=== PATIENT | male | born 1965 | race Caucasian/White ===

== ENCOUNTER 2019-04-26 00:34 | Observation (INO) ==
[2019-04-26 01:40] LABS: Bilirubin,Urine Small (Negative); Blood,Urine Negative (Negative); Glucose,Urine (UA) Normal (Normal); Ketones,Urine Trace mg/dL (Negative); Leukocyte Esterase,Urine Trace (Negative); Nitrite,Urine Negative (Negative); Protein,Urine 100 mg/dL (Neg-Trace); Specific Gravity,Urine > 1.030 (1.010-1.025)
[2019-04-26 01:41] LABS: Basophils % 0.4 %; Eosinophils % 0.4 %; Mean Corpuscular Volume 77.5 fL (83.0-100.0)
[2019-04-26 01:42] LABS: Hyaline Casts,Urine None Seen per lpf (None-Few); RBC,Urine 0-3 per hpf (0-3); Squamous Epithelial Cell,Urine Moderate per lpf (None-Few)
[2019-04-26 01:43] LABS: Color,Urine Dark Yellow (Yellow); Hematocrit 40.3 % (37.5-50.1); Hemoglobin 13.1 g/dL (12.9-16.9); Immature Granulocytes % 1.1 % (0-4); Lymphocytes % 31.5 %; Mean Corpuscular HGB Conc 32.5 g/dL (31.6-35.5); Mean Corpuscular Hemoglobin 25.2 pg (28.0-33.3); Monocytes # 0.3 K/mcL (0.0-1.3); Monocytes % 9.4 %; Neutrophils # 1.5 K/mcL (1.6-8.9); Red Cell Distribution Width 15.9 % (11.5-14.5); Segmented Neutrophils % 57.2 %
[2019-04-26 01:44] LABS: Clarity,Urine Slightly Hazy (Clear)
[2019-04-26 01:53] LABS: Bacteria,Urine Few per hpf (None-Few)
[2019-04-26 01:54] LABS: INR 1.2; Mucus,Urine Few (Few); Prothrombin Time 13.9 Seconds (9.4-12.1); Transitional Epi Cells,Urine Few per hpf (None-Few)
[2019-04-26 01:57] LABS: Activated Partial Thrombo Time 33.3 Seconds (26.0-36.0)
[2019-04-26 02:02] LABS: Alanine Aminotransferase 20 Units/L (7-52); Albumin 3.4 g/dL (3.5-5.7); Albumin/Globulin Ratio 1.1 (1.1-2.2); Alkaline Phosphatase 92 Units/L (34-104); Aspartate Amino Transferase 86 Units/L (13-39); BUN/Creatinine Ratio 15 (6-26); Bilirubin,Direct 0.7 mg/dL (0.0-0.2); Bilirubin,Indirect 0.7 mg/dL (0.0-1.2); Bilirubin,Total 1.4 mg/dL (0.3-1.0); Blood Urea Nitrogen 11 mg/dL (6-20); Calcium 8.5 mg/dL (8.6-10.3); Carbon Dioxide 25 mEq/L (23-29); Chloride 99 mEq/L (98-107); Globulin 3.1 g/dL (2.4-3.5); Glucose 151 mg/dL (70-105); Magnesium 2.1 mg/dL (1.6-2.6); Osmolality,Calculated 276 (280-300); Phosphorous 2.2 mg/dL (2.7-4.5); Potassium 3.6 mEq/L (3.5-5.1); Sodium 132 mEq/L (136-145); Total Protein 6.5 g/dL (6.4-8.9); Troponin I < 0.03 ng/mL (< 0.04); eGFR For Non-African Americans > 60 (> 60)
[2019-04-26 02:09] LABS: Lymphocytes # 0.9 K/mcL (0.6-4.6); Platelet Count 52 K/mcL (140-400)
[2019-04-26 02:10] LABS: Hypochromasia Present (Not Present); Platelet Estimate Decreased (Normal)
[2019-04-26] MEDS ORDERED: Ibuprofen 600 MG TABLET PO ONE (03:11)
[2019-04-26] MEDS ORDERED: 0.9 % Sodium Chloride 1,000 ML IVC ONE (03:12)
[2019-04-26] MEDS ORDERED: Piperacillin/Tazobactam 3.375 GM in 0.9 % Sodium Chloride Mini Bag 100 ML IVPB ONE (03:18)
[2019-04-26] MEDS ORDERED: Levofloxacin 750 MG/150 ML 750 MG/150 ML BAG IVPB ONE (03:18)
--- NOTE | 2019-04-26 03:26 | Emergency Department Note ---
Disposition Clinical Impression: Thrombocytopenia, Fever and neutropenia Right lower lobe pneumonia Qualifiers: Pneumonia type: due to unspecified organism Qualified Code(s): J18.1 - Lobar pneumonia, unspecified organism Disposition: Admitted As Inpatient Condition: Fair Referrals: Mele Lima DO [Primary Care Provider] - General Adult HPI - General Chief complaint: ED Upper Respiratory Infection Stated complaint: "URI?" Time Seen by Provider: 04/26/19 01:15 Source: patient, family Mode of arrival: private vehicle Limitations: no limitations Nursing Notes Reviewed: Yes Vital Signs Reviewed: Yes - History of Present Illness Pt Subjective Complaint: cough, congestion, can't eat, nausea and a little short of breath Onset (ago): week(s) Location: other ("no pain other than chronic knee and wrist pain") Quality: aching ("Achey all over"), other Improves with: nothing Worsens with: nothing Associated symptoms: Reports: cough, fever/chills, loss of appetite, malaise, nausea/vomiting. Denies: confusion, chest pain, diaphoresis, headaches, rash, seizure, shortness of breath, syncope, weakness Treatments Prior to Arrival: none - Related Data Allergies Allergy/AdvReac Type Severity Reaction Status Date / Time No Known Allergies Allergy Verified 04/26/19 00:42 All systems ED: reviewed and negative except as stated. Review of Systems: As Per HPI Constitutional: Reports: fever, chills. Denies: weakness, weight change, night sweats Eyes: Denies: eye pain, eye discharge, vision change ENT ED: Denies: ear pain, throat pain, epistaxis, congestion, dysphagia Cardiovascular: Reports: dyspnea on exertion. Denies: chest pain, palpitations, orthopnea, edema, syncope Respiratory: Reports: as per HPI, cough. Denies: dyspnea, wheezes, hemoptysis, stridor, sputum production Gastrointestinal: Reports: nausea, vomiting. Denies: abdominal pain, diarrhea Genitourinary: Denies: urgency, dysuria, frequency, hematuria Musculoskeletal: Denies: back pain Integumentary: Denies: rash Neurological: Denies: headache, weakness, numbness, paresthesias, confusion, vertigo Hematological/Lymphatic: Denies: easy bleeding, easy bruising, lymphadenopathy Allergic/Immunologic: Denies: facial swelling, urticaria, itchy eyes Past Medical History - Past Medical History Attestation: Yes The following information was validated with the patient. Source: patient Medical history: Reports: diabetes, liver disease Surgical history: Reports: non-contributory Psychiatric history: Reports: no psych history - Social History Smoking Status: Current every day smoker Alcohol use: Reports: occasionally Drug use: Reports: none Physical Exam - General Limitations: no limitations General appearance: alert, in no apparent distress - Head Head exam: atraumatic, normocephalic, normal inspection - Eye Eye exam: Present: normal appearance. Absent: scleral icterus, conjunctival injection, periorbital swelling - ENT ENT exam: normal oropharynx, mucous membranes moist - Neck Neck exam: Present: normal inspection - Chest Chest inspection: Present: normal inspection - Respiratory Respiratory exam: Present: normal lung sounds bilaterally. Absent: respiratory distress - Cardiovascular Cardiovascular exam: Present: regular rate, normal rhythm, normal heart sounds - Abdominal Exam Abdominal exam: Present: soft, Non-Tender, normal bowel sounds. Absent: distention, guarding, rebound, rigidity, mass, pulsatile mass - Extremities Exam Extremities exam: Present: normal inspection, normal capillary refill. Absent: pedal edema - Back Exam Back exam: Present: normal inspection - Neurological Exam Neurological exam: Present: alert, oriented X3, CN II-XII intact, normal gait - Psychiatric Psychiatric exam: Present: normal affect, normal mood - Skin Skin exam: Present: warm, dry, intact, normal color Course Course Narrative: Patient has had cough, malaise and fever for 3 weeks. No PCP for over a year. Labs, meds and CXR ordered. Patient has a neutropenic fever and thrombocytopenia. CXR shows RLL pneumonia. Sats and vitals all improved. Will admit for further eval and treatment. Vital Signs Temperature 102.9 F H 04/26/19 00:38 Pulse Rate 101 04/26/19 00:38 Respiratory Rate 20 04/26/19 00:38 Blood Pressure 113/68 04/26/19 00:38 O2 Sat by Pulse Oximetry 91 04/26/19 00:38 Temperature 102.7 F H 04/26/19 02:49 Pulse Rate 88 04/26/19 02:49 Respiratory Rate 20 04/26/19 02:49 Blood Pressure 114/61 04/26/19 02:49 O2 Sat by Pulse Oximetry 90 04/26/19 02:49 Oxygen Delivery Oxygen Delivery Nasal Cannula Medical Decision Making - Medical Records Medical records reviewed: Yes I reviewed the patient's medical records. - Lab Data Lab results reviewed: Yes I reviewed the patient's lab results. Lab results narrative: Laboratory Last Values WBC 2.7 K/mcL (4.3-11.1) L 04/26/19 01:16 RBC 5.20 M/mcL (4.19-5.50) 04/26/19 01:16 Hgb 13.1 g/dL (12.9-16.9) 04/26/19 01:16 Hct 40.3 % (37.5-50.1) 04/26/19 01:16 MCV 77.5 fL (83.0-100.0) L 04/26/19 01:16 MCH 25.2 pg (28.0-33.3) L 04/26/19 01:16 MCHC 32.5 g/dL (31.6-35.5) 04/26/19 01:16 RDW 15.9 % (11.5-14.5) H 04/26/19 01:16 Plt Count 52 K/mcL (140-400) L 04/26/19 01:16 MPV TNP 04/26/19 01:16 Immature Gran % 1.1 % (0-4) 04/26/19 01:16 Seg Neutrophils % 57.2 % 04/26/19 01:16 31.5 % 04/26/19 01:16 9.4 % 04/26/19 01:16 0.4 % 04/26/19 01:16 0.4 % 04/26/19 01:16 1.5 K/mcL (1.6-8.9) L 04/26/19 01:16 0.9 K/mcL (0.6-4.6) 04/26/19 01:16 0.3 K/mcL (0.0-1.3) 04/26/19 01:16 0.0 K/mcL (0.0-0.6) 04/26/19 01:16 0.0 K/mcL (0.0-0.2) 04/26/19 01:16 Decreased (Normal) L 04/26/19 01:16 Immature Plt Fraction 5.0 % (1.1-6.1) 04/26/19 01:16 Present (Not Present) A 04/26/19 01:16 PT 13.9 Seconds (9.4-12.1) H 04/26/19 01:16 INR 1.2 04/26/19 01:16 APTT 33.3 Seconds (26.0-36.0) 04/26/19 01:16 Sodium 132 mEq/L (136-145) L 04/26/19 01:16 Potassium 3.6 mEq/L (3.5-5.1) 04/26/19 01:16 Chloride 99 mEq/L (98-107) 04/26/19 01:16 Carbon Dioxide 25 mEq/L (23-29) 04/26/19 01:16 BUN 11 mg/dL (6-20) 04/26/19 01:16 0.74 mg/dL (0.70-1.30) 04/26/19 01:16 Est GFR ( Amer) > 60 (> 60) 04/26/19 01:16 Est GFR (Non-Af Amer) > 60 (> 60) 04/26/19 01:16 15 (6-26) 04/26/19 01:16 Glucose 151 mg/dL (70-105) H 04/26/19 01:16 276 (280-300) L 04/26/19 01:16 Lactic Acid 1.8 mmol/L (0.5-2.2) 04/26/19 01:16 Calcium 8.5 mg/dL (8.6-10.3) L 04/26/19 01:16 Phosphorus 2.2 mg/dL (2.7-4.5) L 04/26/19 01:16 Magnesium 2.1 mg/dL (1.6-2.6) 04/26/19 01:16 1.4 mg/dL (0.3-1.0) H 04/26/19 01:16 0.7 mg/dL (0.0-0.2) H 04/26/19 01:16 0.7 mg/dL (0.0-1.2) 04/26/19 01:16 AST 86 Units/L (13-39) H 04/26/19 01:16 ALT 20 Units/L (7-52) 04/26/19 01:16 92 Units/L (34-104) 04/26/19 01:16 < 0.03 ng/mL (< 0.04) 04/26/19 01:16 B-Natriuretic Peptide 30 pg/mL (Less than 100) 04/26/19 01:26 6.5 g/dL (6.4-8.9) 04/26/19 01:16 3.4 g/dL (3.5-5.7) L 04/26/19 01:16 3.1 g/dL (2.4-3.5) 04/26/19 01:16 1.1 (1.1-2.2) 04/26/19 01:16 Dark Yellow (Yellow) 04/26/19 01:16 Slightly Hazy (Clear) 04/26/19 01:16 6.0 pH Units (5.0-8.0) 04/26/19 01:16 Ur Specific [place] > 1.030 (1.010-1.025) H 04/26/19 01:16 100 mg/dL (Neg-Trace) H 04/26/19 01:16 Normal mg/dL (Normal) 04/26/19 01:16 Trace mg/dL (Negative) H 04/26/19 01:16 Negative (Negative) 04/26/19 01:16 Negative (Negative) 04/26/19 01:16 Small (Negative) H 04/26/19 01:16 2.0 mg/dL (Normal) H 04/26/19 01:16 Ur Leukocyte Esterase Trace (Negative) H 04/26/19 01:16 0-3 per hpf (0-3) 04/26/19 01:16 3-5 per hpf (0-3) H 04/26/19 01:16 Ur Squamous Epith Cells Moderate per lpf (None-Few) H 04/26/19 01:16 Ur Transition Epith Cell Few per hpf (None-Few) 04/26/19 01:16 Few per hpf (None-Few) 04/26/19 01:16 Hyaline Casts None Seen per lpf (None-Few) 04/26/19 01:16 Few (Few) 04/26/19 01:16 Ur Culture Indicated? YES (NO) A 04/26/19 01:16 Result diagrams: 04/26/19 01:16 04/26/19 01:16 Lab Results 04/26/19 04/26/19 04/26/19 Range/Units 01:16 01:16 01:16 WBC 2.7 L (4.3-11.1) K/mcL RBC 5.20 (4.19-5.50) M/mcL Hgb 13.1 (12.9-16.9) g/dL Hct 40.3 (37.5-50.1) % MCV 77.5 L (83.0-100.0) fL MCH 25.2 L (28.0-33.3) pg MCHC 32.5 (31.6-35.5) g/dL RDW 15.9 H (11.5-14.5) % Plt Count 52 L (140-400) K/mcL MPV TNP Immature Gran % 1.1 (0-4) % Seg Neutrophils % 57.2 % Lymphocytes % 31.5 % Monocytes % 9.4 % Eosinophils % 0.4 % Basophils % 0.4 % Neutrophils # 1.5 L (1.6-8.9) K/mcL Lymphocytes # 0.9 (0.6-4.6) K/mcL Monocytes # 0.3 (0.0-1.3) K/mcL Eosinophils # 0.0 (0.0-0.6) K/mcL Basophils # 0.0 (0.0-0.2) K/mcL Platelet Estimate Decreased L (Normal) Immature Plt Fraction 5.0 (1.1-6.1) % Hypochromasia Present A (Not Present) PT 13.9 H (9.4-12.1) Seconds INR 1.2 APTT 33.3 (26.0-36.0) Seconds Sodium (136-145) mEq/L Potassium (3.5-5.1) mEq/L Chloride (98-107) mEq/L Carbon Dioxide (23-29) mEq/L BUN (6-20) mg/dL Creatinine (0.70-1.30) mg/dL Est GFR ( Amer) (> 60) Est GFR (Non-Af Amer) (> 60) BUN/Creatinine Ratio (6-26) Glucose (70-105) mg/dL Calculated Osmolality (280-300) Lactic Acid (0.5-2.2) mmol/L Calcium (8.6-10.3) mg/dL Phosphorus (2.7-4.5) mg/dL Magnesium (1.6-2.6) mg/dL Total Bilirubin (0.3-1.0) mg/dL Direct Bilirubin (0.0-0.2) mg/dL Indirect Bilirubin (0.0-1.2) mg/dL AST (13-39) Units/L ALT (7-52) Units/L Alkaline Phosphatase (34-104) Units/L Troponin I (< 0.04) ng/mL Serum Total Protein (6.4-8.9) g/dL Albumin (3.5-5.7) g/dL Globulin (2.4-3.5) g/dL Albumin/Globulin Ratio (1.1-2.2) Urine Color Dark Yellow (Yellow) Urine Clarity Slightly Hazy (Clear) Urine pH 6.0 (5.0-8.0) pH Units Ur Specific [place] > 1.030 H (1.010-1.025) Urine Protein 100 H (Neg-Trace) mg/dL Urine Glucose (UA) Normal (Normal) mg/dL Urine Ketones Trace H (Negative) mg/dL Urine Blood Negative (Negative) Urine Nitrite Negative (Negative) Urine Bilirubin Small H (Negative) Urine Urobilinogen 2.0 H (Normal) mg/dL Ur Leukocyte Esterase Trace H (Negative) Urine Microscopic RBC 0-3 (0-3) per hpf Urine Microscopic WBC 3-5 H (0-3) per hpf Ur Squamous Epith Cells Moderate H (None-Few) per lpf Ur Transition Epith Cell Few (None-Few) per hpf Urine Bacteria Few (None-Few) per hpf Hyaline Casts None Seen (None-Few) per lpf Urine Mucus Few (Few) Ur Culture Indicated? YES A (NO) 04/26/19 04/26/19 Range/Units 01:16 01:16 WBC (4.3-11.1) K/mcL RBC (4.19-5.50) M/mcL Hgb (12.9-16.9) g/dL Hct (37.5-50.1) % MCV (83.0-100.0) fL MCH (28.0-33.3) pg MCHC (31.6-35.5) g/dL RDW (11.5-14.5) % Plt Count (140-400) K/mcL MPV Immature Gran % (0-4) % Seg Neutrophils % % Lymphocytes % % Monocytes % % Eosinophils % % Basophils % % Neutrophils # (1.6-8.9) K/mcL Lymphocytes # (0.6-4.6) K/mcL Monocytes # (0.0-1.3) K/mcL Eosinophils # (0.0-0.6) K/mcL Basophils # (0.0-0.2) K/mcL Platelet Estimate (Normal) Immature Plt Fraction (1.1-6.1) % Hypochromasia (Not Present) PT (9.4-12.1) Seconds INR APTT (26.0-36.0) Seconds Sodium 132 L (136-145) mEq/L Potassium 3.6 (3.5-5.1) mEq/L Chloride 99 (98-107) mEq/L Carbon Dioxide 25 (23-29) mEq/L BUN 11 (6-20) mg/dL Creatinine 0.74 (0.70-1.30) mg/dL Est GFR ( Amer) > 60 (> 60) Est GFR (Non-Af Amer) > 60 (> 60) BUN/Creatinine Ratio 15 (6-26) Glucose 151 H (70-105) mg/dL Calculated Osmolality 276 L (280-300) Lactic Acid 1.8 (0.5-2.2) mmol/L Calcium 8.5 L (8.6-10.3) mg/dL Phosphorus 2.2 L (2.7-4.5) mg/dL Magnesium 2.1 (1.6-2.6) mg/dL Total Bilirubin 1.4 H (0.3-1.0) mg/dL Direct Bilirubin 0.7 H (0.0-0.2) mg/dL Indirect Bilirubin 0.7 (0.0-1.2) mg/dL AST 86 H (13-39) Units/L ALT 20 (7-52) Units/L Alkaline Phosphatase 92 (34-104) Units/L Troponin I < 0.03 (< 0.04) ng/mL Serum Total Protein 6.5 (6.4-8.9) g/dL Albumin 3.4 L (3.5-5.7) g/dL Globulin 3.1 (2.4-3.5) g/dL Albumin/Globulin Ratio 1.1 (1.1-2.2) Urine Color (Yellow) Urine Clarity (Clear) Urine pH (5.0-8.0) pH Units Ur Specific [place] (1.010-1.025) Urine Protein (Neg-Trace) mg/dL Urine Glucose (UA) (Normal) mg/dL Urine Ketones (Negative) mg/dL Urine Blood (Negative) Urine Nitrite (Negative) Urine Bilirubin (Negative) Urine Urobilinogen (Normal) mg/dL Ur Leukocyte Esterase (Negative) Urine Microscopic RBC (0-3) per hpf Urine Microscopic WBC (0-3) per hpf Ur Squamous Epith Cells (None-Few) per lpf Ur Transition Epith Cell (None-Few) per hpf Urine Bacteria (None-Few) per hpf Hyaline Casts (None-Few) per lpf Urine Mucus (Few) Ur Culture Indicated? (NO) - Radiology Data Radiology results reviewed: Yes I reviewed the patient's radiology results. Chest X-Ray 04/26/19 01:29 IMPRESSION: Mild interstitial opacity, for which if acute, edema or atypical infection are considerations. D/ / Rakesh Aden MD / Rakesh Aden MD Interpreting Provider: Rakesh Aden MD Abdomen/Pelvis CT 04/26/19 02:17 IMPRESSION: Right lower lobe airspace disease, compatible with pneumonia or aspiration. Cirrhosis, splenomegaly, small volume ascites, in keeping with portal venous hypertension. No evidence of obstructive uropathy. Mural thickening of the distal esophagus and distal rectum, for which esophagitis or proctitis could be considered respectively. Neoplasm at the sites cannot be excluded. If patient is focally symptomatic, endoscopy would be recommended. Cholelithiasis. D/ / Rakesh Aden MD / Rakesh Aden MD Interpreting Provider: Rakesh Aden MD - EKG Data EKG #1 EKG attestation: Yes I reviewed and interpreted this EKG. EKG shows normal: sinus rhythm Rate: normal Rhythm: NSR [place]/QRS: normal When compared to previous EKG there are: no significant changes Interpretation: no acute changes
[2019-04-26 10:37] LABS: Alanine Aminotransferase 16 Units/L (7-52); Albumin 2.8 g/dL (3.5-5.7); Albumin/Globulin Ratio 1.1 (1.1-2.2); Alkaline Phosphatase 78 Units/L (34-104); Aspartate Amino Transferase 68 Units/L (13-39); BUN/Creatinine Ratio 18 (6-26); Bilirubin,Total 1.1 mg/dL (0.3-1.0); Blood Urea Nitrogen 13 mg/dL (6-20); Calcium 7.8 mg/dL (8.6-10.3); Carbon Dioxide 27 mEq/L (23-29); Chloride 104 mEq/L (98-107); Globulin 2.5 g/dL (2.4-3.5); Glucose 95 mg/dL (70-105); Osmolality,Calculated 280 (280-300); Phosphorous 3.2 mg/dL (2.7-4.5); Potassium 3.5 mEq/L (3.5-5.1); Sodium 135 mEq/L (136-145); Total Protein 5.3 g/dL (6.4-8.9); eGFR For Non-African Americans > 60 (> 60)
--- NOTE | 2019-04-26 10:49 | Internal Med History&Physical ---
Date of Encounter: 04/26/19 Time of Encounter: 10:13 Internal Medicine - H&P: HPI Chief complaint: fever fever History of present illness: Mr. Vargas is a 53 year old male with past medical history liver cirrhosis and diabetes who presented with cough, fever/chills, loss of appetite, malaise, nausea/vomiting over the last several days. The patient did not follow-up with primary care physician, and currently is not taking any medication. He denies confusion, chest pain, diaphoresis, headaches, rash, seizure, shortness of breath, syncope, weakness. His laboratory data revealed neutropenia of 2.7, thrombocytopenia of 15. Imaging studies was suggestive of pneumonia and esophagitis. The patient was admitted for further evaluation and management. Past Med Surg Social Fam HX - Past Medical History Medical history: diabetes, liver disease Additional medical history: liver cirrhosis-"used to drink a alot" Psychiatric history: no psych history - Past Surgical History Surgical History: non-contributory Additional surgical history: C3-[address] b/l wrist - Social History Smoking Status: Former smoker Alcohol use: occasionally Drug use: none - Family History Mother Age: 75 Living Status: Still Living Father Age: 78 Living Status: Still Living Internal Medicine - H&P: Meds No Known Home Drugs 04/26/19 [History] Allergy/AdvReac Type Severity Reaction Status Date / Time No Known Allergies Allergy Verified 04/26/19 11:42 All Systems PM: A 10-system review of systems was performed and is negative for pertinent findings except as documented above in the HPI. - Constitutional Vitals: Temp Pulse Resp BP Pulse Ox 98.7 F 82 16 102/57 90 04/26/19 06:35 04/26/19 06:35 04/26/19 06:35 04/26/19 06:35 04/26/19 06:35 General appearance: Present: A&O X 3 Exam: below - Head Head exam: Present: atraumatic, normocephalic - Neck Neck exam general surgery: Present: supple, trachea midline. Absent: lymphadenopathy - Respiratory Respiratory exam: Present: CTAB. Absent: accessory muscle use, rales, rhonchi, wheezes - Cardiovascular Cardiovascular exam: Present: RRR, +S1, +S2. Absent: diastolic murmur, gallop, rubs, systolic murmur - GI/Abdominal GI/Abdominal exam: Present: normal bowel sounds, soft, no peritoneal signs. Absent: distended, tenderness - Extremities Exam Extremities exam: Present: warm, radial pulses palpable and symmetrical. Absent: calf tenderness, cyanotic, pedal edema Internal Med - H&P Results - Labs CBC & Chem 7: 04/27/19 04:55 04/27/19 04:55 Labs: Short CBC 04/26/19 Range/Units 01:16 WBC 2.7 L (4.3-11.1) K/mcL Hgb 13.1 (12.9-16.9) g/dL Hct 40.3 (37.5-50.1) % Plt Count 52 L (140-400) K/mcL Neutrophils # 1.5 L (1.6-8.9) K/mcL BMP 04/26/19 01:16 Sodium 132 L Potassium 3.6 Chloride 99 Carbon Dioxide 25 BUN 11 Creatinine 0.74 Glucose 151 H Calcium 8.5 L Cardiac Enzymes 04/26/19 Range/Units 01:16 Troponin I < 0.03 (< 0.04) ng/mL Liver Function 04/26/19 Range/Units 01:16 Total Bilirubin 1.4 H (0.3-1.0) mg/dL Direct Bilirubin 0.7 H (0.0-0.2) mg/dL AST 86 H (13-39) Units/L ALT 20 (7-52) Units/L Alkaline Phosphatase 92 (34-104) Units/L Albumin 3.4 L (3.5-5.7) g/dL Urine 04/26/19 Range/Units 01:16 Urine Color Dark Yellow (Yellow) Urine Clarity Slightly Hazy (Clear) Urine pH 6.0 (5.0-8.0) pH Units Ur Specific [place] > 1.030 H (1.010-1.025) Urine Protein 100 H (Neg-Trace) mg/dL Urine Glucose (UA) Normal (Normal) mg/dL - Impressions ITS Impressions Chest X-Ray 04/26/19 01:29 IMPRESSION: Mild interstitial opacity, for which if acute, edema or atypical infection are considerations. D/ / Rakesh Aden MD / Rakesh Adne MD Interpreting Provider: Rakesh Aden MD Abdomen/Pelvis CT 04/26/19 02:17 IMPRESSION: Right lower lobe airspace disease, compatible with pneumonia or aspiration. Cirrhosis, splenomegaly, small volume ascites, in keeping with portal venous hypertension. No evidence of obstructive uropathy. Mural thickening of the distal esophagus and distal rectum, for which esophagitis or proctitis could be considered respectively. Neoplasm at the sites cannot be excluded. If patient is focally symptomatic, endoscopy would be recommended. Cholelithiasis. D/ / Rakesh Aden MD / Rakesh Aden MD Interpreting Provider: Rakesh Aden MD - Assessment and Plan (1) Fever and neutropenia Current Visit: Yes Status: Acute Assessment and plan: There is evidence of possible right lower lobe pneumonia, culture were obtained we will start antibiotics with vancomycin and Zosyn, an empiric antifungal agent should be added after four to seven days is neutropenia persists for total duration of >7 days or recurrent fever is noted. hematology was consulted for further evaluation of neutropenia as well as thrombocytopenia (2) Right lower lobe pneumonia Current Visit: Yes Status: Acute Assessment and plan: The patient was a started on systemic antibiotic with vancomycin and Zosyn, blood culture were obtained Qualifiers: Pneumonia type: due to unspecified organism Qualified Code(s): J18.1 - Lobar pneumonia, unspecified organism (3) Thrombocytopenia Current Visit: Yes Status: Acute Assessment and plan: The patient has history of liver cirrhosis, no evidence of bleeding, hematology was consulted (4) Diabetes Current Visit: Yes Status: Acute Assessment and plan: The patient stated that he is no longer taking his diabetic medication and did not check his blood sugar lately, we will start the patient and for sliding scale coverage and obtain hemoglobin A1c Qualifiers: Qualified Code(s): E11.9 - Type 2 diabetes mellitus without complications (5) Liver cirrhosis Current Visit: Yes Status: Acute Qualifiers: Hepatic cirrhosis type: unspecified hepatic cirrhosis Qualified Code(s): K74.60 - Unspecified cirrhosis of liver (6) Esophagitis Current Visit: Yes Status: Acute Assessment and plan: CT scan of the abdomen revealed Mural thickening of the distal esophagus and distal rectum, for which esophagitis or proctitis could be considered respective ly. Neoplasm at the sites cannot be excluded., the patient reported couple of episodes of nausea a nd vomiting other than that no GI symptoms, GI was consulted for further evaluation and management (7) DVT prophylaxis Current Visit: Yes Status: Acute - Time Spent With Patient Total time spent is greater than 50% in coordination of care (as documented) at patient's floor/unit and/or counseling patient:
[2019-04-26] MEDS ORDERED: Naloxone 0.4 MG/ML INJ IVP PRN (12:29)
--- NOTE | 2019-04-26 12:32 | Gastroenterology Consult Note ---
<Laura Queen - Last Filed: 04/26/19 12:28> Date of Encounter: 04/26/19 Time of Encounter: 10:45 - Assessment and plan (1) Esophagitis Current Visit: Yes Status: Acute Assessment and plan: Pt denies any symptoms of dysphagia, gastric reflux or severe nausea. CT findings are nonspecific, follow up with GI after discharge. EGD can be done as an outpatient. (2) Liver cirrhosis Current Visit: Yes Status: Acute Assessment and plan: Pt has been seen at [facility] for cirrhosis, will obtain records. follow up with GI after discharge Qualifiers: Hepatic cirrhosis type: unspecified hepatic cirrhosis (3) Right lower lobe pneumonia Current Visit: Yes Status: Acute Qualifiers: Pneumonia type: due to unspecified organism Qualified Code(s): J18.1 - Lobar pneumonia, unspecified organism (4) Fever and neutropenia Current Visit: Yes Status: Acute (5) Proctitis Current Visit: Yes Status: Acute Assessment and plan: CT findings not specific, pt reports some diarrhea. Will order stool studies. Colonoscopy as an outpatient. - Time Spent With Patient Total time spent is greater than 50% in coordination of care (as documented) at patient's floor/unit and/or counseling patient: GI History of Present Illness - Data of Consult Patient: new to practice Consult date: 04/26/19 Requesting Physician: Emmanuel Ramos MD - Consult Narrative Reason for consult: abnormal CT, cirrhosis History of present illness: Mr. Vargas is a 53 year old male with past medical history liver cirrhosis and bernie betes who presented with cough, fever/chills, loss of appetite, malaise, nausea/vomiting over the last several days. The patient did not follow-up with primary care physician, and currently is not taking any medication. He denies confusion, chest pain, diaphoresis, headaches, rash, seizure, shortness of breath, syncope, weakness. His laboratory data revealed neutropenia of 2.7, thrombocytopenia of 15. CT of the abdomen shows right lower lobe pneumonia or aspiration. Cirrhosis, splenomegaly, small volume ascites, mural thickening of the distal esophagus and distal rectum. And cholelithiasis. Patient reports 2 episodes of vomiting yesterday he denies any nausea or vomiting or GERD at this time. He denies any dysphagia. He does report some diarrhea over the past few days. He denies any melena or hematochezia. He does complain of fever and chills. He states his he has a history of esophageal varices, follows with [facility] at [facility] but has not seen them since November 2017. He denies any alcohol use or abuse for the past 15 years. He states he was diagnosed with cirrhosis approximately 2 years ago. He states liver transplant was discussed however his had just and he never followed through with the workup. Procedures: EGD 12/14 esophageal varices per pt colonoscopy 2017 per pt at [facility]saids: denies Anticoagulants: denies Past Med Surg Social Fam HX - Past Medical History Medical history: diabetes, liver disease Additional medical history: liver cirrhosis-"used to drink a alot" Psychiatric history: no psych history - Past Surgical History Surgical History: non-contributory Additional surgical history: C3-[address] fusion[address] L [address] b/l wrist - Social History Smoking Status: Former smoker Alcohol use: occasionally Drug use: none - Family History Mother Age: 75 Living Status: Still Living Father Age: 78 Living Status: Still Living Review of Systems: GI: as per [facility]: fever and chills EYES: denies yellow discoloration ENT: denies pain with swallowing or difficulty swallowing CARDIO: denies chest pain, palpitations RESP: Shortness of breath with exertion : denies change in color of urine NEURO: weakness HEME: Denies any bruising MS: denies joint pain, joint swelling or back pain. DERM: denies rash or itching PSYCH: history of depression - Constitutional Vitals: Temp Pulse Resp BP Pulse Ox 97.7 F 62 15 90/56 94 04/26/19 11:01 04/26/19 11:01 04/26/19 11:01 04/26/19 11:01 04/26/19 11:01 Exam: CONSTITUTIONAL:alert, no acute distress.HEAD:normocephalic.EYES:no jaundice.NECK:no obvious swelling.HEART:regular rate and rhythm, no murmurs.LUNGS:bilateral poor air entry.ABDOMEN:non distended, soft, non tender, no masses palpable, no organomegaly.RECTAL EXAM:Deferred. EXTREMITIES:no clubbing, cyanosis or edema.SKIN:no stigmata of chronic liver disease.NEUROLOGIC:no obvious focal defect. Results - Labs CBC & Chem 7: 04/26/19 01:16 04/26/19 10:04 Labs: Last Result 04/26/19 04/26/19 01:16 10:04 Calcium 8.5 L 7.8 L Troponin I < 0.03 Entire Visit 04/26/19 04/26/19 04/26/19 01:16 01:16 01:16 Hgb 13.1 Hct 40.3 PT 13.9 H Total Bilirubin 1.4 H AST 86 H ALT 20 04/26/19 10:04 Hgb Hct PT Total Bilirubin 1.1 H AST 68 H ALT 16 - ABG ABG results: PT/INR, D-dimer PT 13.9 Seconds (9.4-12.1) H 04/26/19 01:16 - Impressions Impressions Chest X-Ray 04/26/19 01:29 IMPRESSION: Mild interstitial opacity, for which if acute, edema or atypical infection are considerations. D/ / Rakesh Aden MD / Rakesh Aden MD Interpreting Provider: Rakesh Aden MD Abdomen/Pelvis CT 04/26/19 02:17 IMPRESSION: Right lower lobe airspace disease, compatible with pneumonia or aspiration. Cirrhosis, splenomegaly, small volume ascites, in keeping with portal venous hypertension. No evidence of obstructive uropathy. Mural thickening of the distal esophagus and distal rectum, for which esophagitis or proctitis could be considered respectively. Neoplasm at the sites cannot be excluded. If patient is focally symptomatic, endoscopy would be recommended. Cholelithiasis. D/ / Rakesh Aden MD / Rakesh Aden MD Interpreting Provider: Rakesh Aden MD Consult Discharge Plan - Plan Referrals: Mele Lima DO [Primary Care Provider] - <Paul Kaiser - Last Filed: 04/26/19 13:27> Date of Encounter: 04/26/19 - Time Spent With Patient Total time spent is greater than 50% in coordination of care (as documented) at patient's floor/unit and/or counseling patient: GI History of Present Illness - Data of Consult Requesting Physician: Emmanuel Ramos MD - Consult Narrative History of present illness: Mr. Vargas is a 53 year old male - Constitutional Vitals: Temp Pulse Resp BP Pulse Ox 97.7 F 62 15 90/56 94 04/26/19 11:01 04/26/19 11:01 04/26/19 11:01 04/26/19 11:01 04/26/19 11:01 Results - Labs CBC & Chem 7: 04/26/19 01:16 04/26/19 10:04 Labs: Last Result 04/26/19 04/26/19 01:16 10:04 Calcium 8.5 L 7.8 L Troponin I < 0.03 Entire Visit 04/26/19 04/26/19 04/26/19 01:16 01:16 01:16 Hgb 13.1 Hct 40.3 PT 13.9 H Total Bilirubin 1.4 H AST 86 H ALT 20 04/26/19 10:04 Hgb Hct PT Total Bilirubin 1.1 H AST 68 H ALT 16 - ABG ABG results: PT/INR, D-dimer PT 13.9 Seconds (9.4-12.1) H 04/26/19 01:16 - Impressions Impressions Chest X-Ray 04/26/19 01:29 IMPRESSION: Mild interstitial opacity, for which if acute, edema or atypical infection are considerations. D/ / Rakesh Aden MD / Rakesh Aden MD Interpreting Provider: Rakesh Aden MD Abdomen/Pelvis CT 04/26/19 02:17 IMPRESSION: Right lower lobe airspace disease, compatible with pneumonia or aspiration. Cirrhosis, splenomegaly, small volume ascites, in keeping with portal venous hypertension. No evidence of obstructive uropathy. Mural thickening of the distal esophagus and distal rectum, for which esophagitis or proctitis could be considered respectively. Neoplasm at the sites cannot be excluded. If patient is focally symptomatic, endoscopy would be recommended. Cholelithiasis. D/ / Rakesh Aden MD / Rakesh Aden MD Interpreting Provider: Rakesh Aden MD - Attending Attestation I have personally performed a face to face evaluation on this patient. I have reviewed and agree with the care plan. History and Exam by me shows: Patient seen no more rectal bleeding. On examination alert awake not in distress. Assessment: Patient with a rectal hemorrhage status post-prostate biopsy. Had multiple scopes done but no actual site of the bleeding could be located although had multiple side cauterized and also clipped in distal rectal area. Currently not bleedin. Rec: Will recommend transfusion to bring hemoglobin around 9. If has recurrent bleeding then we need a sigmoidoscopy stat while bleeding or other option would be embolization of the prostatic arteries by IR. Did discuss with Dr. Tee and Dr. Haq.
[2019-04-26] MEDS ORDERED: Acetaminophen 325 MG TABLET PO PRN (12:34)
[2019-04-26] MEDS ORDERED: *HR* HYDROcodone/Acet 5/325 mg TABLET PO PRN (12:34)
[2019-04-26] MEDS ORDERED: Ondansetron 4 MG/2 ML VIAL IVP PRN (12:34)
[2019-04-26] MEDS ORDERED: Aminoglycoside Consult 1 EACH MC ONE (15:07)
[2019-04-26] MEDS ORDERED: Dextrose Gel 15 GM/37.5 ML TUBE PO PRN ×2 (19:49)
[2019-04-26] MEDS ORDERED: *HR* Dextrose 50 % in Water (Syg) 50 ML SYRINGE IVP PRN (19:49)
[2019-04-26] MEDS ORDERED: D5% in Water 1,000 ML IVC PRN (19:49)
--- NOTE | 2019-04-26 19:56 | Oncology Inp Consult Note ---
Date of Encounter: 04/26/19 Time of Encounter: 19:00 Assessment and Plan (1) Thrombocytopenia Status: Acute Assessment and plan: Leukopenia, patient without any significant anemia, CT imaging showing liver cirrhosis, splenomegaly and portal hypertension. Ferritin levels to rule out occult GI bleeding his hemoglobin hematocrit is normal. No immediate prior lab works for comparison. Cirrhosis likely secondary to ex alcohol use, history of diabetes mellitus. Patient follows up with his digital strategy manager at [facility]. He was once considered for liver transplant. Additional lab works to be obtained will review results. Currently he is not bleeding does not need any transfusion support. Pneumonia,? Sepsis also contributing to cytopenia. Plan of care as above discussed with patient in detail. Monitor lab works/results out patient - Data of Consult Requesting Physician: Emmanuel Ramos MD Primary Care Provider: Mele Lima, DO - Consult Narrative Reason for consult: Pancytopenia History of present illness: 53-year-old male with medical history significant for cirrhosis of the liver, ex alcohol abuse,and diabetes who was hospitalized with cough, nausea and upper GI symptoms possible diagnosis of pneumonia, imaging studies CT scan of the abdomen showed cirrhosis splenomegaly small volume ascites, right lower lobe airspace disease, thickening of distal esophagus and distal rectum. Patient is seen by gastroenterology on consultation. Patient reports that he follows up with bilingual instructor at [facility] in [place], when we offered him a liver transplant and he has not considered yet. He reports having a colonoscopy and endoscopy in the past. Hematology consulted for neutropenia, thrombocytopenia. Past Med Surg Social Fam HX - Past Medical History Medical history: diabetes, liver disease Additional medical history: liver cirrhosis-"used to drink a alot" Psychiatric history: no psych history - Past Surgical History Surgical History: non-contributory Additional surgical history: C3-4 fusion. L thumb. [address] b/l wrist - Social History Smoking Status: Former smoker Alcohol use: occasionally Drug use: none - Family History Mother Age: 75 Living Status: Still Living Father Age: 78 Living Status: Still Living Medications and Allergies No Known Home Drugs 04/26/19 [History] Allergy/AdvReac Type Severity Reaction Status Date / Time No Known Allergies Allergy Verified 04/26/19 11:42 Additional comments: denies wt loss. +fever Additional comments: denies CP SOB Respiratory: Present: cough Gastrointestinal: Present: vomiting Additional comments: denies pain Additional comments: denies headache, dizziness Oncology - Exam - Constitutional General appearance: no acute distress - Head Head exam: Present: atraumatic, normal inspection - Eye Eye exam: Present: sclera anicteric - ENT ENT exam: Present: mucous membranes moist - Neck Additional comments: no palpable adenopathy - Respiratory Respiratory exam: Present: CTAB - Cardiovascular Cardiovascular exam: Present: +S1, +S2 - GI/Abdominal GI/Abdominal exam: Present: normal bowel sounds, soft Additional comments: non tender - Extremities Exam Extremities exam: Present: normal inspection Additional comments: no edema - Neurological Exam Neurological exam: Present: alert, CN II-XII intact, oriented X3, no focal deficits - Psychiatric Psychiatric exam: Present: normal affect - Skin Skin exam: Present: normal color Consult Discharge Plan - Plan Referrals: Mele Lima DO [Primary Care Provider] - Inpatient Charges Provider: Dr. Natalio Saavedra Consult - Inpatient: [id number]
[2019-04-26 20:45] LABS: Estimated Average Glucose 160 mg/dl; Hemoglobin A1C 7.2 %
[2019-04-26] MEDS ORDERED: Insulin LISPRO 300 UNITS/3 ML VIAL SQ SCH (21:00)
--- NOTE | 2019-04-26 21:28 | Electrocardiograph Report ---
[address] [address] Test Date: 2019-04-26 Pat Name: Luis Vargas Department: EXAM2 Room: 3B Gender: M Saw Maker: : [id number] Requested By: [id number] Order Number: [id number] Reading MD: Toño Bhakta Measurements Intervals [place] Rate: 92 P: 78 ND: 124 QRS: 1 QRSD: 88 T: 54 QT: 359 QTc: 445 Interpretive Statements Sinus rhythm Electronically Signed On 04-26-2019 21:26:52 EDT by Toño Bhakta
[2019-04-27] MEDS: Piperacillin/Tazobactam 3.375 GM in 0.9 % Sodium Chloride Mini Bag 100 ML IVPB SCH ×2 (00:06→07:52)
[2019-04-27 06:06] LABS: Eosinophils % 1.6 %
[2019-04-27 06:07] LABS: Basophils % 0.5 %; Hematocrit 35.3 % (37.5-50.1); Hemoglobin 11.3 g/dL (12.9-16.9); Immature Granulocytes % 0.5 % (0-4); Lymphocytes # 0.7 K/mcL (0.6-4.6); Lymphocytes % 39.2 %; Mean Corpuscular Hemoglobin 24.9 pg (28.0-33.3); Mean Corpuscular Volume 77.9 fL (83.0-100.0); Monocytes # 0.2 K/mcL (0.0-1.3); Monocytes % 10.8 %; Neutrophils # 0.9 K/mcL (1.6-8.9); Red Blood Count 4.53 M/mcL (4.19-5.50); Segmented Neutrophils % 47.4 %
[2019-04-27 06:09] LABS: Retculocyte # 0.03 M/mcL (0.05-0.10); Reticulocyte % 0.7 % (1.6-2.8)
[2019-04-27 06:10] LABS: Platelet Count 44 K/mcL (140-400)
[2019-04-27 06:15] LABS: INR 1.3; Prothrombin Time 14.6 Seconds (9.4-12.1)
[2019-04-27 06:18] LABS: Activated Partial Thrombo Time 34.4 Seconds (26.0-36.0)
[2019-04-27 06:25] LABS: Alanine Aminotransferase 15 Units/L (7-52); Albumin 2.8 g/dL (3.5-5.7); Albumin/Globulin Ratio 1.1 (1.1-2.2); Alkaline Phosphatase 80 Units/L (34-104); Aspartate Amino Transferase 60 Units/L (13-39); BUN/Creatinine Ratio 20 (6-26); Bilirubin,Total 1.1 mg/dL (0.3-1.0); Blood Urea Nitrogen 12 mg/dL (6-20); Calcium 8.1 mg/dL (8.6-10.3); Carbon Dioxide 25 mEq/L (23-29); Chloride 105 mEq/L (98-107); Chol/HDL Ratio 2.6 (0-4.9); Cholesterol 49 mg/dL (< 200); Globulin 2.5 g/dL (2.4-3.5); Glucose 101 mg/dL (70-105); HDL Cholesterol 19 mg/dL (40-59); LDL Cholesterol,Calculated 17 mg/dL (0-99); Magnesium 1.9 mg/dL (1.6-2.6); Osmolality,Calculated 282 (280-300); Phosphorous 3.5 mg/dL (2.7-4.5); Potassium 3.3 mEq/L (3.5-5.1); Sodium 136 mEq/L (136-145); Total Protein 5.3 g/dL (6.4-8.9); Triglycerides 63 mg/dL (< 150); eGFR For Non-African Americans > 60 (> 60)
[2019-04-27 06:27] LABS: % Iron Saturation 5 % (20-55); Iron 15 mcg/dL (65-175); Lactate Dehydrogenase 299 Units/L (140-271); Transferrin 211 mg/dL (203-362)
[2019-04-27 06:30] LABS: Platelet Estimate Decreased (Normal)
[2019-04-27 06:44] LABS: Ferritin 71 ng/mL (20-250)
[2019-04-27 06:50] LABS: Folate 13.8 ng/mL (3.0-16.0)
[2019-04-27 06:51] LABS: Vitamin B12 1329 pg/mL (250-1100)
--- NOTE | 2019-04-27 08:05 | Internal Med Progress Note ---
Hospitalist Progress Note - Encounter Date of Encounter: 04/27/19 Time of Encounter: 08:02 - Subjective Interval History: Patient seen and examined this morning at bedside. No acute overnight events. Afebrile overnight. Hemodynamically stable. Feeling much better. Breathing improved. Has mild cough. Denies abdominal pain chills or diarrhea chest pain - Exam Vitals: Temp Pulse Resp BP Pulse Ox 98.5 F 80 17 104/63 90 04/27/19 07:21 04/27/19 07:21 04/27/19 07:21 04/27/19 07:21 04/27/19 07:21 Exam: Exam General: In no acute distress. Respiratory exam: no accessory muscle use. b/l basal crackles. Rt mid lung rhonchi. Cardiovascular exam: RRR, +S1, +S2. no murmur, gallop, rubs. GI/Abdominal exam: Non-tender, Non-distended, normal bowel sounds, soft, no peritoneal signs. Extremities exam: no pedal edema, pulses palpable in b/l lower extremities. no calf tenderness, lt thumb partial amputation. Neurological exam: CN II-XII intact, AO X3, no focal deficits. Skin exam: No skin rash - Assessment and Plan (1) Right lower lobe pneumonia Current Visit: Yes Status: Acute (2) Thrombocytopenia Current Visit: Yes Status: Acute (3) Fever and neutropenia Current Visit: Yes Status: Acute (4) Diabetes Current Visit: Yes Status: Acute (5) Liver cirrhosis Current Visit: Yes Status: Acute (6) Esophagitis Current Visit: Yes Status: Acute (7) DVT prophylaxis Current Visit: Yes Status: Acute - Summary of Assessment and Plan Summary of Assessment and Plan: Assessment Acute Fever and neutropenia Right lower lobe pneumonia Thrombocytopenia abnormal esophagus/rectum on CI DVT prophylaxis Chronic DM Liver cirrhosis Plan - Not in sepsis. c/w empiric antibiotics with vanc/zosyn given neutropenia. Monitor renal function. f/u blood and sputum cultures and urinary antigen. Monitor for fever - wbc and plt slightly decreased. has h/o cirrhosis and evidenc of splenomegaly and Portal HTN. pnuemonia possible contributing. Hematology following. recommen dation appreciated. Monitor cbc hematology was consulted for further evaluation of neutropenia as well as thrombocytopenia - A1c 7.2. Not taking any home medication for diabetes. Will discuss starting medication vs lifestyle changes. - h/o alocholic liver cirrhosis, no evidence of bleeding. Not on blood thinner. Hb did decrease. Monitor for now. - abnormal CT with mural thickening of distal esophagus and rectum. Had EGD on 12/14 for esophageal varices and colonoscopy 2016 . GI consulted. Findings non specific without any symptoms. Outpatient follow up recommended per GI. Follows director [employer] and was considered for liver transplant. - scd for dvt prophylaxis - Time Spent with Patient Total time spent is greater than 50% in coordination of care (as documented) at patient's floor/unit and/or counseling patient: Internal Medicine: Result - Labs CBC & Chem 7: 04/27/19 04:55 04/27/19 04:55 Labs: Short CBC 04/27/19 Range/Units 04:55 WBC 1.9 L (4.3-11.1) K/mcL Hgb 11.3 L D (12.9-16.9) g/dL Hct 35.3 L (37.5-50.1) % Plt Count 44 L (140-400) K/mcL Neutrophils # 0.9 L (1.6-8.9) K/mcL BMP 04/26/19 04/27/19 10:04 04:55 Sodium 135 L 136 Potassium 3.5 3.3 L Chloride 104 105 Carbon Dioxide 27 25 BUN 13 12 Creatinine 0.72 0.61 L Glucose 95 101 Calcium 7.8 L 8.1 L Liver Function 04/26/19 04/27/19 Range/Units 10:04 04:55 Total Bilirubin 1.1 H 1.1 H (0.3-1.0) mg/dL AST 68 H 60 H (13-39) Units/L ALT 16 15 (7-52) Units/L Alkaline Phosphatase 78 80 (34-104) Units/L Albumin 2.8 L 2.8 L (3.5-5.7) g/dL - ABG Interpretation ABG results: PT/INR, D-dimer PT 14.6 Seconds (9.4-12.1) H 04/27/19 04:55 Consult Discharge Plan - Plan Referrals: Mele Lima DO [Primary Care Provider] - (1) Right lower lobe pneumonia Qualifiers: Pneumonia type: due to unspecified organism Qualified Code(s): J18.1 - Lobar pneumonia, unspecified organism (5) Liver cirrhosis Qualifiers: Hepatic cirrhosis type: unspecified hepatic cirrhosis
[2019-04-27] MEDS: Insulin LISPRO 300 UNITS/3 ML VIAL SQ SCH ×2 (08:40→12:35)
[2019-04-27 08:41] LABS: Hepatitis B Surface Antigen Nonreactive (Nonreactive)
[2019-04-27 09:10] LABS: Hepatitis C Virus Antibody Nonreactive (Nonreactive)
[2019-04-27 09:11] LABS: Hepatitis B Core IgM Nonreactive (Nonreactive)
[2019-04-27 09:13] LABS: Hepatitis A Antibody IgM Nonreactive (Nonreactive)
[2019-04-27 09:34] LABS: Adenovirus DETECTED (Not Detect); Bordetella Pertussis Not Detected (Not Detect); Chlamydophila pneumoniae Not Detected (Not Detect); Coronavirus 229E Not Detected (Not Detect); Coronavirus HKU1 Not Detected (Not Detect); Coronavirus NL63 Not Detected (Not Detect); Coronavirus OC43 Not Detected (Not Detect); Human Metapneumovirus Not Detected (Not Detect); Human Rhinovirus/Enterovirus Not Detected (Not Detect); Influenza A Subtype 2009 H1 Not Detected (Not Detect); Influenza A Untypeable Not Detected (Not Detect); Influenza B Not Detected (Not Detect); Mycoplasma pneumoniae Not Detected (Not Detect); Parainfluenza Virus 1 Not Detected (Not Detect); Parainfluenza Virus 2 Not Detected (Not Detect); Parainfluenza Virus 3 Not Detected (Not Detect); Parainfluenza Virus 4 Not Detected (Not Detect); Respiratory Syncytial Virus Not Detected (Not Detect)
[2019-04-27 12:13] VITALS: BP 103/64
--- NOTE | 2019-04-27 15:24 | Discharge Summary ---
- NOTES TO OUTPATIENT PROVIDER Notes to Outpatient Provider: Follow-up patient's blood count including white count and platelets. May need hematology follow-up. Orders not resulted at time of discharge: Pending orders 04/26/19 01:16 Culture,Blood [BC] Stat 04/26/19 12:47 Calprotectin, Fecal Stat 04/27/19 10:24 Culture,Sputum with Gram Stain [RM] Stat 04/27/19 11:23 Legionella Antigen [RM] Routine S. Pneumoniae Antigen [RM] Routine Date of Encounter: 04/27/19 Time of Encounter: 15:22 - Discharge Diagnosis (1) Right lower lobe pneumonia Priority: Primary Status: Acute Qualifiers: Pneumonia type: due to unspecified organism Qualified Code(s): J18.1 - Lobar pneumonia, unspecified organism (2) Thrombocytopenia Priority: Secondary Status: Acute (3) Fever and neutropenia Priority: Primary Status: Acute (4) Diabetes Priority: Secondary Status: Acute Qualifiers: Qualified Code(s): E11.9 - Type 2 diabetes mellitus without complications (5) Liver cirrhosis Priority: Primary Status: Acute Qualifiers: Hepatic cirrhosis type: unspecified hepatic cirrhosis Qualified Code(s): K74.60 - Unspecified cirrhosis of liver (6) Esophagitis Priority: Secondary Status: Acute (7) DVT prophylaxis Priority: Secondary Status: Acute Hospital course: Mr. Vargas is a 53 year old male past medical history of diabetes, liver cirrhosis from alcohol now quit drinking came in with complaint of fever and chills was found to have neutropenia and thrombocytopenia and right lower lobe pneumonia. Patient was started on empiric antibiotics vancomycin and Zosyn. Patient was found to have positive adenovirus on respiratory panel. Oncology was consulted who felt might be related to pneumonia. Blood cultures sputum culture urine antigen were pending. Patient also had GI evaluation for abnormal CT finding of thickened distal esophagus and distal rectum. Was thought to be likely nonspecific finding as patient was asymptomatic and was asked to follow-up outpatient. No other intervention was done by GI. Patient called me as he wanted to leave. However given still neutropenia and thrombocytopenia and unclear organism causing pneumonia patient is not safe to go home. Discussed with patient before he left AMA that it is possible it is just watery infection however we need negative blood cultures before discharging safely however patient mentioned he did not like the food and wanted to leave. Discussed possibility of worsening respiratory failure, worsening infection and possibility of bleeding. Discussed to come to ER if any of that happens. Patient would be given a prescription for Levaquin for 5 more days to finish 7 day course. I asked to follow with PCP as soon as possible. Discharge discussed with: patient, nurse - Time Spent with Patient Total time spent providing and/or coordinating discharge services: Time spent: Greater than 30 minutes (40) - Discharge Medications Prescriptions: New levoFLOXacin [Levaquin] 750 mg PO DAILY 5 Days #5 tablet Home Medications: levoFLOXacin [Levaquin] 750 mg PO DAILY 5 Days #5 tablet 04/27/19 [Rx] Allergies/Adverse Reactions: Allergy/AdvReac Type Severity Reaction Status Date / Time No Known Allergies Allergy Verified 04/26/19 11:42 Date of admission: 04/26/19 05:32 Primary care physician: Mele Lima DO Consults: 04/26/19 09:57 Consult to Gastroenterology [CONS] Routine Consulting Provider: Gastroenterology Milla Reason for Consult: Mural thickening of the distal esophagus and distal rectum, for which esophagitis or proctitis could be considered respectively. Neoplasm at the sites cannot be excluded. If patient is focally symptomatic, endoscopy would be recommended. Time Notified: 09:57 Call Completed: No 04/26/19 10:07 Consult to Oncology Hematology [CONS] Routine Consulting Provider: Bruna Elias Reason for Consult: Neutropenia, thrombocytopenia Time Notified: 10:10 Call Completed: Yes 04/26/19 10:16 Consult to Fence Erector Supervisor [CONS] Routine Reason for SW Consult: need assistance with medications Discharging clinician: Felipe Dey - Constitutional Vitals: Temp Pulse Resp BP Pulse Ox 99.2 F 82 18 103/64 90 04/27/19 12:12 04/27/19 12:12 04/27/19 12:12 04/27/19 12:12 04/27/19 12:12 Exam: General: In no acute distress. Respiratory exam: no accessory muscle use. b/l basal crackles. Rt mid lung rhonchi. Cardiovascular exam: RRR, +S1, +S2. no murmur, gallop, rubs. GI/Abdominal exam: Non-tender, Non-distended, normal bowel sounds, soft, no peritoneal signs. Extremities exam: no pedal edema, pulses palpable in b/l lower extremities. no calf tenderness, lt thumb partial amputation. Neurological exam: CN II-XII intact, AO X3, no focal deficits. Skin exam: No skin rash - Patient Status Disposition: Left Against Medical Advice Condition: Fair - Discharge Instructions Instructions: Diabetes Mellitus Type 2 in Adults (DC), Pneumonia (DC) Follow Up With: Mele Lima DO [Primary Care Provider] - (Please follow up with primary care provider with 7-10 days. )
== END 2019-04-27 15:08 | disposition left against medical advice (07) ==
LOC: EMEROOARM 00:34 → 3BNU 00:34 → SUATTDRO 05:32 → 3BNU 06:17
PROVIDERS: ADMIT Pediatrics; ATTEND Internal Medicine